=== PATIENT | male | born 1970 | race Caucasian/White ===

== ENCOUNTER 2019-08-30 09:21 | Emergency (ER) | payer BC ==
[~2019-08-30] VITALS: Ht 182.9 cm; Wt 81.8 kg
[2019-08-30 09:25] VITALS: Ht 182.9 cm; Wt 81.8 kg
[2019-08-30] MEDS ORDERED: LISINOPRIL20 MG PO (09:26)
[2019-08-30] MEDS ORDERED: FLUTICASONE PRO16 GM NASAL (10:29)
[2019-08-30] MEDS ORDERED: ZYRTEC10 MG PO (10:29)
[2019-08-30 10:40] VITALS: BP 130/78
== END 2019-08-30 10:41 | disposition home or self-care (01) ==
LOC: D.ER 09:21
DX: J00 Acute nasopharyngitis [common cold] (principal); I10 Essential (primary) hypertension

== ENCOUNTER → 2019-12-08 11:09 | Outpatient (CLI) | payer BC ==
[2019-08-30 09:25] VITALS: BMI 24.4
[~2019-12-08 11:09] MED LIST: FLUTICASONE PRO16 GM NASAL; LISINOPRIL20 MG PO; TESSALON PERLE100 MG PO; ZPAK PO; ZYRTEC10 MG PO
== END | disposition home or self-care (01) ==
LOC: D.MRI 11:09
PROVIDERS: ATTEND Nurse Practitioner Family
DX: B34.9 Viral infection, unspecified (principal); Z20.828 Contact with and (suspected) exposure to other viral communicable diseases; I10 Essential (primary) hypertension

== ENCOUNTER 2019-12-08 11:18 | Emergency (ER) | payer BC ==
[~2019-12-08] VITALS: Ht 182.9 cm; Wt 83.6 kg
[~2019-12-08 11:18] MED LIST changes: -TESSALON PERLE100 MG PO; -ZPAK PO
[2019-12-08 11:40] VITALS: Ht 182.9 cm; Wt 83.6 kg
[2019-12-08 12:40] LABS: CALC OSMOLALITY 269 mosm/kg (275-300); CARBON DIOXIDE 26.9 mmol/L (21.0-32.0); CHLORIDE - SERUM 100 mmol/L (98-107); CREATININE - SERUM 1.2 mg/dL (0.6-1.3); GLUCOSE 81 mg/dL (74-106); POTASSIUM - SERUM 4.3 mmol/L (3.5-5.1); SODIUM 136 mmol/L (136-145); UREA NITROGEN 11 mg/dL (7-18); eGFR NON AFRICAN AMERICAN 68 mL/min (90-120)
[2019-12-08 12:53] LABS: BASOPHILS 0.8 % (0-2); HEMATOCRIT 43.8 % (42.0-54.0); HEMOGLOBIN 14.3 g/dL (13.5-17.5); IMMATURE GRANULOCYTES 0.2 % (0-5); LYMPHOCYTES 27.7 % (15-50); MCH 32.4 pg (26.0-34.0); MCHC 32.6 g/dL (31.0-37.0); MCV 99.3 fL (80.0-100.0); MEAN PLATELET VOLUME 10.8 fL (7.4-10.4); MONOCYTES 13.3 % (2-11); PLATELET COUNT 236 10x3/uL (130-400); RBC 4.41 10x6/uL (4.20-6.10); RDW 12.5 % (11.5-14.5); WBC 5.9 10x3/uL (4.8-10.8)
[2019-12-08 12:59] LABS: ALBUMIN 4.1 g/dL (3.4-5.0); ALKALINE PHOSPHATASE 73 U/L (30-120); ALT (SGPT) 59 U/L (10-68); BILIRUBIN - TOTAL 0.47 mg/dL (0.2-1.3); CKMB 2.3 U/L (0.0-3.6); CREATINE KINASE 128 UL (21-232); FERRITIN 475 ng/mL (3-244)
[2019-12-08 13:00] LABS: C-REACTIVE PROTEIN < 0.2 mg/dL (0.0-0.9); TROPONIN-I < 0.017 ng/mL (0.000-0.060)
[2019-12-08] MEDS ORDERED: ZPAK PO (13:14)
[2019-12-08] MEDS ORDERED: TESSALON PERLE100 MG PO (13:15)
[2019-12-08 13:34] VITALS: BP 136/72
== END 2019-12-08 15:04 | disposition home or self-care (01) ==
LOC: D.ER 11:18
PROVIDERS: Family Medicine
DX: B34.9 Viral infection, unspecified (principal); Z20.828 Contact with and (suspected) exposure to other viral communicable diseases; I10 Essential (primary) hypertension

== ENCOUNTER 2020-05-18 21:36 | Emergency (ER) | payer MEDICARE ==
[~2020-05-18] VITALS: Ht 182.9 cm; Wt 83.9 kg
[~2020-05-18 21:36] MED LIST changes: +TESSALON PERLE100 MG PO; +ZPAK PO
[2020-05-18 21:57] VITALS: Ht 182.9 cm; Wt 83.9 kg
[2020-05-18] MEDS ORDERED: PENICILLIN V P500 MG PO (22:46)
[2020-05-18] MEDS ORDERED: VOLTAREN75 MG PO (22:46)
[2020-05-18] MEDS ORDERED: TYLENOL W/CODEI1 TAB PO (22:47)
[2020-05-18 22:56] VITALS: BP 153/97
== END 2020-05-18 22:56 | disposition home or self-care (01) ==
LOC: D.ER 21:36
DX: K08.89 Other specified disorders of teeth and supporting structures (principal); I10 Essential (primary) hypertension